=== PATIENT | male | born 1980 | race Caucasian/White ===

== ENCOUNTER 2018-07-02 09:17 | Emergency (ER) | payer SELFPAY ==
[2018-07-02] MEDS ORDERED: ONDANSETRON 4 MG/2 ML VIAL ONE (09:30)
[2018-07-02] MEDS ORDERED: FENTANYL CITR 100 MCG/2 ML ONE ×2 (09:30→10:25)
[2018-07-02 09:42] LABS: Absolute Lymphocytes (CBC) 1.2 K/uL (0.7-4.9); Absolute Monocytes 0.5 K/uL (0.1-1.3); Absolute Neutrophil 3.9 K/uL (1.8-8.0); Eosinophils % 1.1 % (0-4.4); Hematocrit 46.6 % (39.6-49.0); Lymphocytes % 21.2 % (15.3-44.8); MPV 9.8 fL (7.6-11.3)
--- NOTE | 2018-07-02 09:53 | RAD REPORT ---
EXAM DESCRIPTION: CT - Head C Spine Cap Kendy Holloway - 07/02/2018 9:33 am CLINICAL HISTORY: Fall from roof, head, neck, chest and abdomen pain COMPARISON: None. TECHNIQUE: Axial [address] head images were obtained. Axial [address] cervical spine images were obtaine d with sagittal and coronal reconstruction images reviewed. During dynamic enhancement of 100mL non-i onic contrast, axial 5 mm images of the chest, abdomen and pelvis were obtained. All CT scans are performed using dose optimization technique as appropriate and may include automated exposure control or mA/KV adjustment according to patient size. FINDINGS: No intracranial hemorrhage, mass or edema. No midline shift or abnormal fluid collection. Mastoid air cells and paranasal sinuses are clear. No skull fracture. CT cervical spine imaging shows normal height. Normal alignment of the vertebrae. No disc space narro wing. No paraspinal mass or hematoma seen. Central canal detail is inherently limited. Concerns for t raumatic disc herniation or traumatic cord injury can be further addressed with MR imaging. CT chest shows no pneumothorax, pulmonary contusion or pleural fluid collection. Minimal dependent at electasis in each posterior lung field. No mediastinal hematoma and the aorta and pulmonary arteries are unremarkable. No chest will mass or abnormal axillary finding. No displaced rib fracture or other significant bony finding. CT abdomen and pelvis show no injury to solid abdominal viscera. Gallbladder and biliary tree are unr emarkable. No bowel injury or significant finding. No free air, free fluid or abnormal stranding. No urinary bladder abnormality. There is a trace amount of contusion in the left flank subcutaneous fatt y tissues. No hematoma. No significant bony finding. No hip fracture or acute pelvic finding. IMPRESSION: No significant CT Head finding. No significant CT Cervical Spine finding. No significant CT Chest finding. No significant CT Abdomen and Pelvis finding. Minimal contusion in the left flank subcutaneous fat.
[2018-07-02 09:59] LABS: Potassium 4.1 mmol/L (3.5-5.1)
--- NOTE | 2018-07-02 10:53 | RAD REPORT ---
EXAM DESCRIPTION: RAD - Elbow Left 3 View - 07/02/2018 10:44 am CLINICAL HISTORY: PAIN Trauma, fall COMPARISON: No comparisons FINDINGS: No acute fracture or dislocation of the left elbow seen.
--- NOTE | 2018-07-02 10:55 | RAD REPORT ---
EXAM DESCRIPTION: RAD - Ankle Left 3 View - 07/02/2018 10:44 am CLINICAL HISTORY: PAIN COMPARISON: No comparisons FINDINGS: No acute fracture or dislocation of the left ankle is seen.
--- NOTE | 2018-07-02 10:56 | RAD REPORT ---
EXAM DESCRIPTION: RAD - Knee Right 3 View - 07/02/2018 10:49 am CLINICAL HISTORY: PAIN Trauma, fall, pain COMPARISON: No comparisons FINDINGS: No fracture or dislocation of the right knee is observed.
--- NOTE | 2018-07-02 10:58 | RAD REPORT ---
EXAM DESCRIPTION: RAD - Hip Right 2 View - 07/02/2018 10:49 am CLINICAL HISTORY: RT HIP PAIN Trauma, fall, pain COMPARISON: Head C Spine Cap W Con dated 07/02/2018 FINDINGS: Mild osteoarthritic changes affect the right hip. No acute fracture or dislocation is seen . A subtle sclerotic line is seen near the junction of the femoral head and neck, probably normal nikolas iant. However, the patient's pain persists or progresses, MR imaging would be advised to further asse ss this region.
[2018-07-02] MEDS ORDERED: HYDROMORPHONE HCL 0.5 MG/0.5 ML INJ ONE ×2 (11:43→13:03)
[2018-07-02] MEDS ORDERED: KETOROLAC 30 MG/ML INJ ONE (11:55)
[2018-07-02] MEDS ORDERED: DEXAMETHASONE 10 MG/ML VIAL ONE (11:55)
--- NOTE | 2018-07-02 13:25 | EKG ---
Test Date: 2018-07-02 Test Time: 09:54:50 Utility Tender Carding: JESSY MEASUREMENT RESULTS: Intervals: Rate: 58 MA: 140 QRSD: 84 QT: 390 QTc: 382 [place]: P: 52 MA: 140 QRS: 69 T: 56 INTERPRETIVE STATEMENTS: Sinus bradycardia Otherwise normal ECG No previous ECG available for comparison Electronically Signed On 07-02-18 13:24:28 SKIN SPECIALIST by Cheikh Fuchs
[2018-07-02] MEDS ORDERED: HYDROMORPHONE HCL 1 MG/ML INJ ONE (14:26)
[2018-07-02] MEDS ORDERED: NA CHLORIDE 0.9% 100 ML IV ONE (14:27)
--- NOTE | 2018-07-02 16:27 | RAD REPORT ---
EXAM DESCRIPTION: MRI - Hip Right Wo Cont - 07/02/2018 4:14 pm CLINICAL HISTORY: Right hip pain, abnormal right hip plain film COMPARISON: Right hip July 02 TECHNIQUE: Multiplanar imaging of the pelvis and hip joints performed using T1 weighted, T2 STIR, pr oton density and T2 fat saturation sequencing. FINDINGS: Proximal right femur signal characteristics are within normal range and symmetric with the asymptomatic left hip. The sclerotic focus seen on plain film is a summation artifact. There is no o ccult fracture or marrow edema in the proximal right femur. Small bilateral joint effusions are prese nt not outside of normal range. No AVN or focal femoral head abnormality. The lower half of the bony pelvis is imaged and shows no suspicious finding. Portions of each iliac crest are obscured from view on this hip protocol study. No sacral ala suspicious finding. No periarticular mass or hematoma seen. Skeletal musculature shows no suspicious finding. IMPRESSION: Negative MRI of the right hip for acute or significant finding. The sclerotic focus on p [place] film is a summation artifact.
--- NOTE | 2018-07-02 16:43 | EDPHYS ---
Physician Documentation [facility] Name: Rashaad Johnson Age: 38 yrs Sex: Male : 1980 Arrival Date: 07/02/2018 Time: 09:20 Bed 2 Private MD: ED Physician Sebastian Hill HPI: 07/02 09:42 This 38 yrs old Male presents to ER via Wheelchair with complaints of Fall from Roof. jr8 09:42 Trauma demographics: County: The injury occurred in [place] Location of Injury: The jr8 injury occurred outdoors, Date: July 02, 2018. Mechanism of injury: Fall: the patient fell from a roof approximately approximately 10 feet, and struck dirt. Associated injuries: The patient sustained injury to the low back, left arm, right leg and left leg. Onset: The symptoms/episode began/occurred acutely, today. The patient has not experienced similar symptoms in the past. The patient has not recently seen a physician. Slipped while on roof causing fall. Denies hitting head or neck. No LOC . Historical: - Allergies: 09:28 No Known Allergies; ph - Home Meds: : Diazepam Oral [Active]; ph - PMHx: 09:28 None; ph - Immunization history:: Adult Immunizations up to date, Last tetanus immunization: up to date. - Social history:: Smoking status: Patient uses tobacco products, smokes one pack cigarettes per day. - Ebola Screening: : No symptoms or risks identified at this time. ROS: 09:42 Eyes: Negative for injury, pain, redness, and discharge, ENT: Negative for injury, jr8 pain, and discharge, Neck: Negative for injury, pain, and swelling, Cardiovascular: Negative for chest pain, palpitations, and edema, Respiratory: Negative for shortness of breath, cough, wheezing, and pleuritic chest pain, Abdomen/GI: Negative for abdominal pain, nausea, vomiting, diarrhea, and constipation, Skin: Negative for injury, rash, and discoloration, Neuro: Negative for headache, weakness, numbness, tingling, and seizure. 09:42 Back: Positive for pain at rest, pain with movement, of the lumbar area and low back area. 09:42 MS/extremity: Positive for pain, tenderness, of the right knee, left ankle, left elbow, right hip. Exam: 09:42 Eyes: Pupils equal round and reactive to light, extra-ocular motions intact. Lids and jr8 lashes normal. Conjunctiva and sclera are non-icteric and not injected. Cornea within normal limits. Periorbital areas with no swelling, redness, or edema. ENT: Nares patent. No nasal discharge, no septal abnormalities noted. Tympanic membranes are normal and external auditory canals are clear. Oropharynx with no redness, swelling, or masses, exudates, or evidence of obstruction, uvula midline. Mucous membranes moist. Neck: Trachea midline, no thyromegaly or masses palpated, and no cervical lymphadenopathy. Supple, full range of motion without nuchal rigidity, or vertebral point tenderness. No Meningismus. Chest/axilla: Normal chest wall appearance and motion. Nontender with no deformity. No lesions are appreciated. Cardiovascular: Regular rate and rhythm with a normal S1 and S2. No gallops, murmurs, or rubs. Normal PMI, no JVD. No pulse deficits. Respiratory: Lungs have equal breath sounds bilaterally, clear to auscultation and percussion. No rales, rhonchi or wheezes noted. No increased work of breathing, no retractions or nasal flaring. Abdomen/GI: Soft, non-tender, with normal bowel sounds. No distension or tympany. No guarding or rebound. No evidence of tenderness throughout. Skin: Warm, dry with normal turgor. Normal color with no rashes, no lesions, and no evidence of cellulitis. Neuro: Awake and alert, GCS 15, oriented to person, place, time, and situation. Cranial nerves II-XII grossly intact. Motor strength 5/5 in all extremities. Sensory grossly intact. Cerebellar exam normal. Normal gait. 09:42 Back: pain, that is moderate, of the lumbar area and low back area, ROM is painful, normal spinal alignment noted, CVA tenderness, is absent, muscle spasm, is not present. 09:42 Musculoskeletal/extremity: Extremities: Patient has pain with decreased ROM to right knee. Patient has pain with decreased ROM to left ankle. Pain to left elbow with full ROM. Pain and tenderness to right hip. No obvious deformity, bruising, abrasions, lacerations to any of the extremities. Pulses 2+ radial, femoral, PT, and DP . Normal sensation present . Vital Signs: 09:30 BP 133 / 82; Pulse 78; Resp 24; Temp 98.1; Pulse Ox 100% on R/A; Weight 90.72 kg; ph Height 6 ft. 1 in. (185.42 cm); Pain 10/10; 10:28 BP 116 / 72; Pulse 54; Resp 14; Temp 98.5; Pulse Ox 99% on R/A; Pain 3/10; ch 11:30 BP 129 / 79; Pulse 57; Resp 16; Pulse Ox 97% on R/A; ph 12:22 BP 117 / 74; Pulse 45; Resp 16; Pulse Ox 98% on R/A; ph 12:59 BP 120 / 64; Pulse 61; Resp 19; Pulse Ox 99% on R/A; Pain 9/10; ch 13:39 BP 109 / 78; Pulse 47; Resp 16; Pulse Ox 97% on R/A; ph 16:40 BP 110 / 62; Pulse 65; Resp 14; Temp 98.2; Pulse Ox 99% on R/A; Pain 9/10; ch 09:30 Body Mass Index 26.39 (90.72 kg, 185.42 cm) ph Spencer Coma Score: 09:30 Eye Response: spontaneous(4). Verbal Response: oriented(5). Motor Response: obeys ph commands(6). Total: 15. 10:28 Eye Response: spontaneous(4). Verbal Response: oriented(5). Motor Response: obeys ch commands(6). Total: 15. 11:30 Eye Response: spontaneous(4). Verbal Response: oriented(5). Motor Response: obeys ph commands(6). Total: 15. 12:22 Eye Response: spontaneous(4). Verbal Response: oriented(5). Motor Response: obeys ph commands(6). Total: 15. 13:39 Eye Response: spontaneous(4). Verbal Response: oriented(5). Motor Response: obeys ph commands(6). Total: 15. 16:40 Eye Response: spontaneous(4). Verbal Response: oriented(5). Motor Response: obeys ch commands(6). Total: 15. Trauma Score (Adult): 09:30 Eye Response: spontaneous(1); Verbal Response: oriented(1); Motor Response: obeys ph commands(2); Systolic BP: > 89 mm Hg(4); Respiratory Rate: 10 to 29 per min(4); Ben Score: 15; Trauma Score: 12 11:30 Eye Response: spontaneous(1); Verbal Response: oriented(1); Motor Response: obeys ph commands(2); Systolic BP: > 89 mm Hg(4); Respiratory Rate: 10 to 29 per min(4); Spencer Score: 15; Trauma Score: 12 12:22 Eye Response: spontaneous(1); Verbal Response: oriented(1); Motor Response: obeys ph commands(2); Systolic BP: > 89 mm Hg(4); Respiratory Rate: 10 to 29 per min(4); Ben Score: 15; Trauma Score: 12 13:39 Eye Response: spontaneous(1); Verbal Response: oriented(1); Motor Response: obeys ph commands(2); Systolic BP: > 89 mm Hg(4); Respiratory Rate: 10 to 29 per min(4); Spencer Score: 15; Trauma Score: 12 16:40 Eye Response: spontaneous(1); Verbal Response: oriented(1); Motor Response: obeys ch commands(2); Systolic BP: > 89 mm Hg(4); Respiratory Rate: 10 to 29 per min(4); Ben Score: 15; Trauma Score: 12 MDM: 09:21 Patient medically screened. [facility] 16:38 Differential diagnosis: intra-abdominal injury, closed head injury, cardiac contusion, jr8 extremity fracture, C spine fracture, T spine fracture, L spine fracture. Data reviewed: vital signs, nurses notes, lab test result(s), radiologic studies, CT scan, MRI, plain films. Data interpreted: Pulse oximetry: on room air is 97 %. Interpretation: normal. Counseling: I had a detailed discussion with the patient and/or guardian regarding: the historical points, exam findings, and any diagnostic results supporting the discharge/admit diagnosis, lab results, radiology results, the need for outpatient follow up, a family practitioner, a orthopedic surgeon, to return to the emergency department if symptoms worsen or persist or if there are any questions or concerns that arise at home. 07/02 09:22 Order name: Basic Metabolic Panel; Complete Time: 10:38 07/02 09:22 Order name: CBC with Diff; Complete Time: 09:58 07/02 09:22 Order name: CT Traumagram (Head C Spine CAP W Con); Complete Time: 09:58 07/02 09:22 Order name: Creatinine for Radiology; Complete Time: 09:58 07/02 09:22 Order name: Type And Screen; Complete Time: 10:38 8 07/02 09:53 Order name: ABO/RH no charge; Complete Time: 09:58 EDMS 07/02 09:22 Order name: XRAY Ankle LEFT 3 view; Complete Time: 11:18 07/02 09:22 Order name: XRAY Elbow LEFT 3 view; Complete Time: 10:57 07/02 09:22 Order name: XRAY Knee RIGHT 3 view; Complete Time: 11:18 07/02 10:14 Order name: Hip Right 2 View; Complete Time: 11:18 EDMS 07/02 11:42 Order name: MRI Lumbar Spine wo Con; Complete Time: 16:54 07/02 11:52 Order name: Hip Right Wo Cont; Complete Time: 16:35 EDMS 07/02 09:22 Order name: Labs collected and sent; Complete Time: 09:34 07/02 09:22 Order name: EKG; Complete Time: 09:23 Administered Medications: 09:30 Drug: fentaNYL (PF) 75 mcg Route: IVP; Site: right antecubital; ph 10:26 Follow up: Response: No adverse reaction; Pain is decreased ch 09:30 Drug: Zofran 4 mg Route: IVP; Site: right antecubital; ph 10:26 Follow up: Response: No adverse reaction; Marked relief of symptoms ch 10:20 Drug: fentaNYL (PF) 75 mcg Route: IVP; Site: right antecubital; ch 10:26 Follow up: Response: No adverse reaction; Pain is decreased ch 11:43 Drug: Dilaudid 0.5 mg Route: IVP; Site: right antecubital; ph 12:22 Follow up: Response: No adverse reaction; Pain is decreased ph 12:18 Drug: TORadol 30 mg Route: IVP; Site: right antecubital; ph 13:02 Follow up: Response: No adverse reaction; No change in condition ch 12:20 Drug: Decadron - Dexamethasone 10 mg Route: IVP; Site: right antecubital; ph 13:01 Follow up: Response: No adverse reaction; No change in condition ch 13:01 Drug: Dilaudid 0.5 mg Route: IVP; Site: right antecubital; ch 13:30 Follow up: Response: No adverse reaction; Pain is decreased ph 14:27 Drug: Dilaudid 1 mg Route: IVP; Site: right antecubital; ph 15:30 Follow up: Response: No adverse reaction; Pain is decreased ph Disposition: 18:15 Co-signature as Attending Physician, Sebastian Hill MD. rn Disposition: 07/02/18 16:42 Discharged to Home. Impression: Acute pain due to trauma, Contusion of right hip, Low back pain, Radiculopathy, lumbar region. - Condition is Stable. - Discharge Instructions: Back Pain, Adult, Musculoskeletal Pain, Hip Pain, Back Exercises, [id number], Heat Therapy. - Prescriptions for Ibuprofen 800 mg Oral Tablet - take 1 tablet by ORAL route every 12 hours As needed take with food; 20 tablet. Tylenol- Codeine #3 300-30 mg Oral Tablet - take 2 tablets by ORAL route every 6 hours As needed; 20 tablet. Zanaflex 4 mg Oral Tablet - take 1 tablet by ORAL route every 8 hours As needed; 20 tablet. Medrol ([place]) 4 mg Oral Tablets, Dose Pack - take 1 tablet by ORAL route as directed - follow package instructions; 1 packet. - Medication Reconciliation Form, Thank You Letter, Antibiotic Education, Prescription Opioid Use form. - Follow up: Private Physician; When: 5 - 6 days; Reason: Recheck today's complaints, Continuance of care, Re-evaluation by your physician. - Problem is new. - Symptoms have improved. Signatures: Dispatcher [employer] [facility] Rohini Perez, RN RN Sebastian Deshpande MD MD rn Roszak, Josh, PA PA jr8 Domitila Richardson RN RN ph Corrections: (The following items were deleted from the chart) 10:14 10:14 Hand Right 2 View ordered. [facility] 17:08 16:42 07/02/2018 16:42 Discharged to Home. Impression: Acute pain due to trauma; ph Contusion of right hip; Low back pain; Radiculopathy, lumbar region. Condition is Stable. Forms are Medication Reconciliation Form, Thank You Letter, Antibiotic Education, Prescription Opioid Use. Follow up: Private Physician; When: 5 - 6 days; Reason: Recheck today's complaints, Continuance of care, Re-evaluation by your physician. Problem is new. Symptoms have improved. jr8
--- NOTE | 2018-07-02 16:43 | ER ---
Nurse's Notes [facility] Name: Rashaad Johnson Age: 38 yrs Sex: Male : 1980 Arrival Date: 07/02/2018 Time: 09:20 Bed 2 Private MD: Diagnosis: Acute pain due to trauma;Contusion of right hip;Low back pain;Radiculopathy, lumbar region Presentation: 07/02 09:24 Presenting complaint: Patient states: " I was working up on the roof and slipped and ph fell off." Pt reports falling approx 10 ft, denies head injury or LOC, c/o pain in L ankle, L elbow, R hip, R knee and low back area, c-collar placed after arrival to ED. Transition of care: patient was not received from another setting of care. Onset of symptoms was July 02, 2018. Risk Assessment: Do you want to hurt yourself or someone else? Patient reports no desire to harm self or others. Initial Sepsis Screen: Does the patient meet any 2 criteria? No. Patient's initial sepsis screen is negative. Does the patient have a suspected source of infection? No. Patient's initial sepsis screen is negative. Care prior to arrival: None. 09:24 Method Of Arrival: Wheelchair ph 09:24 Acuity: EUGENE 2 ph 09:24 Mechanism of Injury: Fall from roof approximately 10 feet. Trauma event details: Injury ph occurred in the [facility], Injury occurred: at home. Injury occurred: July 02, 2018. Historical: - Allergies: 09:28 No Known Allergies; ph - Home Meds: 09:28 Diazepam Oral [Active]; ph - PMHx: 09:28 None; ph - Immunization history:: Adult Immunizations up to date, Last tetanus immunization: up to date. - Social history:: Smoking status: Patient uses tobacco products, smokes one pack cigarettes per day. - Ebola Screening: : No symptoms or risks identified at this time. Screenin:30 Abuse screen: Denies threats or abuse. Denies injuries from another. Nutritional ph screening: No deficits noted. Tuberculosis screening: No symptoms or risk factors identified. Fall Risk None identified. Primary Survey: 09:29 NO uncontrolled hemorrhage observed. A: The patient is alert. Airway: patent, No ph supplemental oxygen in use on arrival. Oral cavity: clear, Trachea midline. Breathing/Chest: Respiratory pattern: regular, Respiratory effort: spontaneous, unlabored, Breath sounds: clear, bilaterally. Chest inspection: symmetrical rise and fall of the chest. Circulation: Cardiac rhythm: sinus rhythm Skin color: pink, Skin temperature: warm, dry. Disability Alert. Exposure/Environment: All clothing and personal items were removed. Forensic evidence collection is not deemed to be indicated at this time. Items placed in patient belonging bag. There is no evidence of uncontrolled external bleeding. A warming method has been applied: A warm blanket has been provided to the patient. 10:29 Reassessment Airway Airway Patent Breathing/Chest Respiratory pattern Regular ch Respiratory effort Spontaneous Unlabored Breath sounds Clear Circulation Heart rhythm Sinus christopher Color [place] Temperature Warm Dry Disability Alert. Secondary Survey: 09:30 HEENT: No deficits noted. Gastrointestinal: No deficits noted. Musculoskeletal: ph Circulation, motion, and sensation intact. Reports pain in left elbow, left ankle, right hip, right knee, and low back area. 10:29 : No signs and/or symptoms were reported regarding the genitourinary system. Urine is ch clear, Genitalia appear normal. Assessment: 09:30 General: Appears in no apparent distress. uncomfortable, slender, Behavior is calm, ph cooperative, appropriate for age. Pain: Complains of pain in left elbow, left ankle, right hip, right knee, and low back area. Neuro: Level of Consciousness is awake, alert, obeys commands, Oriented to person, place, time, situation, Denies weakness blurred vision dizziness. Cardiovascular: Capillary refill < 3 seconds in bilateral fingers Patient's skin is warm and dry. Respiratory: Airway is patent Respiratory effort is even, unlabored, Respiratory pattern is regular, symmetrical, Breath sounds are clear bilaterally. GI: Patient currently denies abdominal pain, nausea, vomiting. Derm: Skin is intact, is healthy with good turgor, Skin is pink, warm \\T\\ dry. Musculoskeletal: Circulation, motion, and sensation intact. 10:28 Reassessment: Patient appears in no apparent distress at this time. Patient and/or ch family updated on plan of care and expected duration. Pain level reassessed. Patient is alert, oriented x 3, equal unlabored respirations, skin warm/dry/pink. Patient states feeling better. Patient states symptoms have improved. 11:30 Reassessment: Patient appears in no apparent distress at this time. Patient and/or ph family updated on plan of care and expected duration. Pain level reassessed. Patient is alert, oriented x 3, equal unlabored respirations, skin warm/dry/pink. 12:25 Reassessment: Patient appears in no apparent distress at this time. Patient and/or ph family updated on plan of care and expected duration. Pain level reassessed. Patient is alert, oriented x 3, equal unlabored respirations, skin warm/dry/pink. Pt resting quietly, awaiting MRI, VSS, SO at bedside\\E\\. 12:59 Reassessment: Patient appears in no apparent distress at this time. Patient and/or ch family updated on plan of care and expected duration. Pain level reassessed. Patient is alert, oriented x 3, equal unlabored respirations, skin warm/dry/pink. pt c/o increase in pain, medicated per orders. pt states he is having tingling to R foot. 13:38 Reassessment: Patient appears in no apparent distress at this time. Patient and/or ph family updated on plan of care and expected duration. Pain level reassessed. Patient is alert, oriented x 3, equal unlabored respirations, skin warm/dry/pink. Pt reports that pain has improved after IV medication, awaiting MRI, SO at bedside, VSS, will continue to monitor. 15:41 Reassessment: Patient appears in no apparent distress at this time. Patient and/or ph family updated on plan of care and expected duration. Pain level reassessed. Patient is alert, oriented x 3, equal unlabored respirations, skin warm/dry/pink. Pt taken for MRI. 16:40 Reassessment: Patient appears in no apparent distress at this time. Patient and/or ch family updated on plan of care and expected duration. Pain level reassessed. pt returned from MRI, states his pain is back and worse than ever. Ayan notified. Vital Signs: 09:30 BP 133 / 82; Pulse 78; Resp 24; Temp 98.1; Pulse Ox 100% on R/A; Weight 90.72 kg; ph Height 6 ft. 1 in. (185.42 cm); Pain 10/10; 10:28 BP 116 / 72; Pulse 54; Resp 14; Temp 98.5; Pulse Ox 99% on R/A; Pain 3/10; ch 11:30 BP 129 / 79; Pulse 57; Resp 16; Pulse Ox 97% on R/A; ph 12:22 BP 117 / 74; Pulse 45; Resp 16; Pulse Ox 98% on R/A; ph 12:59 BP 120 / 64; Pulse 61; Resp 19; Pulse Ox 99% on R/A; Pain 9/10; ch 13:39 BP 109 / 78; Pulse 47; Resp 16; Pulse Ox 97% on R/A; ph 16:40 BP 110 / 62; Pulse 65; Resp 14; Temp 98.2; Pulse Ox 99% on R/A; Pain 9/10; ch 09:30 Body Mass Index 26.39 (90.72 kg, 185.42 cm) ph Ben Coma Score: 09:30 Eye Response: spontaneous(4). Verbal Response: oriented(5). Motor Response: obeys ph commands(6). Total: 15. 10:28 Eye Response: spontaneous(4). Verbal Response: oriented(5). Motor Response: obeys ch commands(6). Total: 15. 11:30 Eye Response: spontaneous(4). Verbal Response: oriented(5). Motor Response: obeys ph commands(6). Total: 15. 12:22 Eye Response: spontaneous(4). Verbal Response: oriented(5). Motor Response: obeys ph commands(6). Total: 15. 13:39 Eye Response: spontaneous(4). Verbal Response: oriented(5). Motor Response: obeys ph commands(6). Total: 15. 16:40 Eye Response: spontaneous(4). Verbal Response: oriented(5). Motor Response: obeys ch commands(6). Total: 15. Trauma Score (Adult): 09:30 Eye Response: spontaneous(1); Verbal Response: oriented(1); Motor Response: obeys ph commands(2); Systolic BP: > 89 mm Hg(4); Respiratory Rate: 10 to 29 per min(4); Ben Score: 15; Trauma Score: 12 11:30 Eye Response: spontaneous(1); Verbal Response: oriented(1); Motor Response: obeys ph commands(2); Systolic BP: > 89 mm Hg(4); Respiratory Rate: 10 to 29 per min(4); Ben Score: 15; Trauma Score: 12 12:22 Eye Response: spontaneous(1); Verbal Response: oriented(1); Motor Response: obeys ph commands(2); Systolic BP: > 89 mm Hg(4); Respiratory Rate: 10 to 29 per min(4); Ben Score: 15; Trauma Score: 12 13:39 Eye Response: spontaneous(1); Verbal Response: oriented(1); Motor Response: obeys ph commands(2); Systolic BP: > 89 mm Hg(4); Respiratory Rate: 10 to 29 per min(4); Ben Score: 15; Trauma Score: 12 16:40 Eye Response: spontaneous(1); Verbal Response: oriented(1); Motor Response: obeys ch commands(2); Systolic BP: > 89 mm Hg(4); Respiratory Rate: 10 to 29 per min(4); Ben Score: 15; Trauma Score: 12 ED Course: 09:20 Patient arrived in ED. bd 09:21 Ayan Mcneill PA is PHCP. jr8 09:21 Sebastian Hill MD is Attending Physician. jr8 09:24 Domitila Richardson, SACHI is Primary Nurse. ph 09:24 Patient has correct armband on for positive identification. Placed in gown. Bed in low mh5 position. Call light in reach. Side rails up X2. Warm blanket given. pvc monitor on. Pulse ox on. NIBP on. 09:25 Inserted saline lock: 14 gauge in right antecubital area, using aseptic technique. ph Blood collected. Patient maintains SpO2 saturation greater than 95% on room air. 09:27 Triage completed. ph 09:28 CT completed. Patient tolerated procedure well. Patient moved to CT via stretcher. Patient moved back from CT. 09:33 CT Traumagram (Head C Spine CAP W Con) In Process Unspecified. EDMS 09:35 Arm band placed on. ph 09:36 Thermoregulation: warm blanket given to patient. ph 10:02 EKG done, by [employer] set up technician. reviewed by Ayan KYE. at1 10:29 Patient maintains SpO2 saturation greater than 95% on room air. ch 10:43 X-ray completed. Patient tolerated procedure well. Patient moved to radiology via jb2 stretcher. Patient moved back from radiology. 10:45 XRAY Ankle LEFT 3 view In Process Unspecified. EDMS 10:45 XRAY Elbow LEFT 3 view In Process Unspecified. EDMS 10:45 XRAY Knee RIGHT 3 view In Process Unspecified. EDMS 10:45 Hip Right 2 View In Process Unspecified. EDMS 16:14 MRI Lumbar Spine wo Con In Process Unspecified. EDMS 16:14 Hip Right Wo Cont In Process Unspecified. EDMS 17:05 No provider procedures requiring assistance completed. IV discontinued, intact, ph bleeding controlled, No redness/swelling at site. Pressure dressing applied. Administered Medications: 09:30 Drug: fentaNYL (PF) 75 mcg Route: IVP; Site: right antecubital; ph 10:26 Follow up: Response: No adverse reaction; Pain is decreased ch 09:30 Drug: Zofran 4 mg Route: IVP; Site: right antecubital; ph 10:26 Follow up: Response: No adverse reaction; Marked relief of symptoms ch 10:20 Drug: fentaNYL (PF) 75 mcg Route: IVP; Site: right antecubital; ch 10:26 Follow up: Response: No adverse reaction; Pain is decreased ch 11:43 Drug: Dilaudid 0.5 mg Route: IVP; Site: right antecubital; ph 12:22 Follow up: Response: No adverse reaction; Pain is decreased ph 12:18 Drug: TORadol 30 mg Route: IVP; Site: right antecubital; ph 13:02 Follow up: Response: No adverse reaction; No change in condition ch 12:20 Drug: Decadron - Dexamethasone 10 mg Route: IVP; Site: right antecubital; ph 13:01 Follow up: Response: No adverse reaction; No change in condition ch 13:01 Drug: Dilaudid 0.5 mg Route: IVP; Site: right antecubital; ch 13:30 Follow up: Response: No adverse reaction; Pain is decreased ph 14:27 Drug: Dilaudid 1 mg Route: IVP; Site: right antecubital; ph 15:30 Follow up: Response: No adverse reaction; Pain is decreased ph Intake: 09:30 PO: 0ml; Total: 0ml. ph 12:22 PO: 0ml; Total: 0ml. ph Output: 09:30 Urine: 0ml; Total: 0ml. ph 10:29 Urine: 550ml (Voided); Total: 550ml. ch 12:22 Urine: 450ml (Voided); Total: 1000ml. ph Outcome: 16:42 Discharge ordered by MD. lane 17:06 Discharged to home ambulatory, with significant other. ph 17:06 Condition: good 17:06 Discharge instructions given to patient, significant other, Instructed on discharge instructions, follow up and referral plans. medication usage, Demonstrated understanding of instructions, follow-up care, medications, Prescriptions given X 4. 17:07 Patient's length of stay in the Emergency Department was greater than 2 hours. awaiting ph MRIPatient's length of stay extended due to 17:08 Patient left the ED. ph Signatures: Dispatcher [employer] EDMS Rufina Flowers Christina, SACHI RN Asher Glasgow Susan sj Roszak, Josh, PA PA jr8 Gonzales, Amanda, audit tech EKG Tat1 Domitila Richardson RN RN Bailee Vidal [facility]
--- NOTE | 2018-07-02 16:53 | RAD REPORT ---
EXAM DESCRIPTION: MRI - Lumbar Spine Wo Con - 07/02/2018 4:33 pm CLINICAL HISTORY: Fall from roof, back and hip pain, numbness and tingling in the right lower extrem ity COMPARISON: None. TECHNIQUE: Sagittal T1-weighted, T2-weighted and T2-STIR weighted sequences were obtained. Axial T1 -weighted and heavily T2-weighted sequenceswere obtained through the lumbar disc levels. FINDINGS: Lumbar bodies are normal in height and alignment. No suspicious marrow signal. No paraspi nal masses. Combined imaging between the lumbar spine and the hip/pelvis MRI effectively rule out a s acral ala injury. Conus is normal with no clumping or thickening of the cauda equina. T12-L1 level: No significant findings. L1-2 level: No significant findings. L2-3 level: No significant findings. L3-4 level: No significant findings. L4-5 level: Very minimal midline disc bulge present. Thecal sac is 13 mm in the midline. No foraminal encroachment. L5-S1 level: Early desiccation changes are present. There is a midline disc bulge. No central spinal stenosis at this level. No mass effect on the thecal sac or right S1 nerve root. Disc bulge contacts the left S1 nerve root at the origin but there is no indication of left lower extremity symptoms. The bulging disc does not displace the S1 nerve root on the left. No foraminal encroachment at this leve l. No pars defects are present. IMPRESSION: L5-S1 midline disc bulge causing no central spinal stenosis or significant mass effect. There is early desiccation of this disc. Minimal midline disc bulge L4-5 without desiccation. No canal or foramen stenosis. No compression fracture or marrow signal abnormality from T12- mid S3.
== END 2018-07-02 17:08 | disposition home or self-care (01) ==
LOC: ER 09:17
DX: M54.16 Radiculopathy, lumbar region (principal); S70.01XA Contusion of right hip, initial encounter; G89.11 Acute pain due to trauma; W17.89XA Other fall from one level to another, initial encounter; Y93.89 Activity, other specified; Y92.89 Other specified places as the place of occurrence of the external cause; F17.210 Nicotine dependence, cigarettes, uncomplicated
CPT/HCPCS: 36415; 70450; 71260; 72125; 72148; 74177; 80048; 85025; 86850; 86900; 86901; 93005; 96374; 96375; 99285; J1100; J1170; J2405; J3010; Q9967

== ENCOUNTER 2018-11-28 11:22 | Emergency (ER) | payer SELFPAY ==
[2018-11-28] MEDS ORDERED: IBUPROFEN 400 MG TAB ONE (12:12)
--- NOTE | 2018-11-28 12:30 | RAD REPORT ---
EXAM DESCRIPTION: RAD - Hand Right 3 View - 11/28/2018 12:14 pm CLINICAL HISTORY: Right hand pain status post injury FINDINGS: No acute fracture or dislocation is seen. Mild deformity of the fifth metacarpal may be secondary to an old fracture
--- NOTE | 2018-11-28 12:44 | ER ---
Nurse's Notes [facility] Name: Rashaad Johnson Age: 38 yrs Sex: Male : 1980 Arrival Date: 11/28/2018 Time: 11:25 Bed 20 Private MD: Ronald Lilly T Diagnosis: Pain in right hand Presentation: 11/28 11:34 Presenting complaint: Patient states: R hand pain and swelling after punching a solid ss wood wall yesterday evening. Transition of care: patient was not received from another setting of care. Onset of symptoms was November 27, 2018. Risk Assessment: Do you want to hurt yourself or someone else? Patient reports no desire to harm self or others. Initial Sepsis Screen: Does the patient meet any 2 criteria? No. Patient's initial sepsis screen is negative. Does the patient have a suspected source of infection? No. Patient's initial sepsis screen is negative. Care prior to arrival: None. 11:34 Method Of Arrival: Ambulatory ss 11:34 Acuity: EUGENE 4 ss Historical: - Allergies: 11:36 No Known Allergies; ss - PMHx: 11:36 Anxiety; ss - PSHx: 11:36 None; ss - Immunization history:: Adult Immunizations up to date. - Social history:: Smoking status: Patient uses tobacco products, smokes one pack cigarettes per day. - Ebola Screening: : Patient denies exposure to infectious person Patient denies travel to an Ebola-affected area in the 21 days before illness onset. Screenin:40 Abuse screen: Denies threats or abuse. Nutritional screening: No deficits noted. em Tuberculosis screening: No symptoms or risk factors identified. 11:40 Fall Risk None identified. em Assessment: 12:10 Reassessment: reports taking 6 ibuprofen this morning for pain, request a tylenol 3, em reports he can get a ride, provider notified. 12:10 General: Appears in no apparent distress. comfortable, Behavior is calm, cooperative. em Pain: Complains of pain in right hand Pain currently is 9 out of 10 on a pain scale. Neuro: Level of Consciousness is awake, alert, obeys commands, Oriented to person, place, time, situation. Respiratory: Airway is patent Respiratory effort is even, unlabored, Respiratory pattern is regular, symmetrical. Derm: Skin is intact, is healthy with good turgor, Skin is pink, warm \T\ dry. Musculoskeletal: Capillary refill < 3 seconds, Swelling present in right hand. Vital Signs: 11:36 BP 115 / 68; Pulse 73; Resp 16; Temp 98.2(TE); Pulse Ox 97% on R/A; Weight 86.18 kg; ss Height 6 ft. 1 in. (185.42 cm); Pain 9/10; 11:36 Body Mass Index 25.07 (86.18 kg, 185.42 cm) ED Course: 11:25 Patient arrived in ED. mr 11:26 Ronald Lilly MD is Private Physician. mr 11:36 Triage completed. ss 11:36 Arm band placed on left wrist. ss 11:40 Patient has correct armband on for positive identification. Bed in low position. Call em light in reach. 11:44 Kenneth Ramos LVN is Primary Nurse. em 11:44 Pratik Wong PA is PHCP. cp 11:44 Sebastian Hill MD is Attending Physician. cp 12:12 X-ray completed. Portable x-ray completed in exam room. Patient tolerated procedure ml well. 12:15 XRAY Hand RIGHT 3 View In Process Unspecified. EDMS 13:08 Orthoglass splint: Ulnar gutter/Boxer splint applied on right forearm. capillary refill dh3 less than 3 seconds. Pratik Wong, P.A. checked off splint. 13:15 No provider procedures requiring assistance completed. Patient did not have IV access em during this emergency room visit. Administered Medications: 12:39 Not Given (Other Intervention Used): Ibuprofen 800 mg PO once em Outcome: 12:43 Discharge ordered by . cp 13:15 Discharged to home ambulatory. em 13:15 Condition: good 13:15 Discharge instructions given to patient, Instructed on discharge instructions, follow up and referral plans. medication usage, Demonstrated understanding of instructions, follow-up care, medications, Prescriptions given X 1. 13:15 Patient left the ED. em Signatures: Dispatcher [employer] KELSEYNM GonzalezJessy RamosKenneth, RIKKI BRANDT em Charito Jones Shelby, RN RN Pratik Wong PA PA cp Herrera, Deanna dh3
--- NOTE | 2018-11-28 12:44 | EDPHYS ---
Physician Documentation [facility] Name: Rashaad Johnson Age: 38 yrs Sex: Male : 1980 Arrival Date: 11/28/2018 Time: 11:25 Bed 20 Private MD: Ronald Lilly T ED Physician Sebastian Hill HPI: 11/28 11:55 This 38 yrs old Male presents to ER via Ambulatory with complaints of Hand cp Injury. 11:55 The patient or guardian reports injury, pain. cp 11:55 The complaints affect the proximal third and fourth and fifth metacarpals of right cp hand. Context: resulted from using own fist to strike, a wall. Onset: The symptoms/episode began/occurred yesterday. Associated signs and symptoms: Pertinent negatives: cyanosis distally, decreased sensation distally. Historical: - Allergies: 11:36 No Known Allergies; ss - PMHx: 11:36 Anxiety; ss - PSHx: 11:36 None; ss - Immunization history:: Adult Immunizations up to date. - Social history:: Smoking status: Patient uses tobacco products, smokes one pack cigarettes per day. - Ebola Screening: : Patient denies exposure to infectious person Patient denies travel to an Ebola-affected area in the 21 days before illness onset. ROS: 11:57 MS/extremity: Positive for pain, swelling, tenderness, of the right hand, Negative for cp decreased range of motion, deformity. 11:57 Constitutional: Negative for chills, poor PO intake. cp 11:57 Cardiovascular: Negative for chest pain. 11:57 Respiratory: Negative for cough, shortness of breath, wheezing. 11:57 Abdomen/GI: Negative for abdominal pain, nausea, vomiting, and diarrhea. 11:57 Skin: Negative for laceration(s), rash. 11:57 Neuro: Negative for numbness, tingling, weakness. 11:57 All other systems are negative. Exam: 12:05 Constitutional: The patient appears in no acute distress, alert, awake, well developed, cp well nourished. 12:05 Head/Face: Normocephalic, atraumatic. cp 12:05 Eyes: Periorbital structures: Conjunctiva: normal, no exudate, no injection, Lids and lashes: appear normal, bilaterally. 12:05 ENT: External ear(s): are unremarkable, Nose: is normal, Mouth: Lips: moist, Oral mucosa: moist, Posterior pharynx: Airway: no evidence of obstruction, patent. 12:05 Chest/axilla: Inspection: normal. 12:05 Cardiovascular: Rate: normal. 12:05 Respiratory: the patient does not display signs of respiratory distress, Respirations: normal. 12:05 Musculoskeletal/extremity: Extremities: grossly normal except: noted in the proximal third and fourth and fifth metacarpals of right hand: pain, tenderness, very mild swelling, There is no evidence of decreased ROM, deformity, ROM: limited active range of motion due to pain, in the right hand, Perfusion: the extremity is normally perfused throughout, Sensation intact. 12:05 Skin: cellulitis, is not appreciated, no rash present. Vital Signs: 11:36 BP 115 / 68; Pulse 73; Resp 16; Temp 98.2(TE); Pulse Ox 97% on R/A; Weight 86.18 kg; ss Height 6 ft. 1 in. (185.42 cm); Pain 9/10; 11:36 Body Mass Index 25.07 (86.18 kg, 185.42 cm) Procedures: 13:10 Splinting: Splint applied to right hand using Orthoglass splint, ulna gutter type. cp applied by tech. Examined by me, post splint application: neurovascular intact, Patient tolerated well. MDM: 11:44 Patient medically screened. cp 12:42 Data reviewed: vital signs, nurses notes, radiologic studies, plain films. cp 12:42 Differential diagnosis: dislocation, open fracture, closed fracture, contusion. Test cp interpretation: by ED physician or midlevel provider: plain radiologic studies. Counseling: I had a detailed discussion with the patient and/or guardian regarding: the historical points, exam findings, and any diagnostic results supporting the discharge/admit diagnosis, radiology results, to return to the emergency department if symptoms worsen or persist or if there are any questions or concerns that arise at home. Response to treatment: the patient's symptoms have mildly improved after treatment, and as a result, I will discharge patient. 11/28 11:47 Order name: XRAY Hand RIGHT 3 View cp 11/28 12:41 Order name: Ulnar Gutter splint; Complete Time: 13:11 cp Administered Medications: 12:39 Not Given (Other Intervention Used): Ibuprofen 800 mg PO once em Disposition: 13:20 Chart complete. cp 11/29 07:25 Co-signature as Attending Physician, Sebastian Hill MD. rn Disposition: 11/28/18 12:43 Discharged to Home. Impression: Pain in right hand. - Condition is Stable. - Discharge Instructions: Hand Pain. - Prescriptions for Naprosyn 500 mg Oral Tablet - take 1 tablet by ORAL route 2 times per day take with food; 20 tablet. - Medication Reconciliation Form, Thank You Letter, Antibiotic Education, Prescription Opioid Use form. - Follow up: Private Physician; When: 5 - 6 days; Reason: pain continues. - Problem is new. - Symptoms have improved. Signatures: Dispatcher [employer] EDMI Kenneth Ramos, SERVICE CLERK SERVICE CLERK Sebastian Rangel MD MD rn Smirch, Shelby, RN RN ss Page, Corey, SHAHID KEY cp Corrections: (The following items were deleted from the chart) 11/28 13:15 12:43 11/28/2018 12:43 Discharged to Home. Impression: Pain in right hand. Condition is em Stable. Forms are Medication Reconciliation Form, Thank You Letter, Antibiotic Education, Prescription Opioid Use. Follow up: Private Physician; When: 5 - 6 days; Reason: pain continues. Problem is new. Symptoms have improved. cp
== END 2018-11-28 13:15 | disposition home or self-care (01) ==
LOC: ER 11:22
PROC: 2W3CX1Z Immobilization of Right Lower Arm using Splint (ICD-10-PCS; principal; 2018-11-28)
DX: M79.641 Pain in right hand (principal); F17.210 Nicotine dependence, cigarettes, uncomplicated
CPT/HCPCS: 99283

== ENCOUNTER 2019-08-20 00:26 | Emergency (ER) | payer SELFPAY ==
[2019-08-20 01:27] LABS: Albumin 3.9 g/dL (3.4-5.0); Basophils % 0.6 % (0-1.3); Bilirubin Direct 0.1 mg/dL (0-0.2); Bilirubin Total 0.4 mg/dL (0.2-1.0); Hematocrit 45.9 % (39.6-49.0); Lymphocytes % 19.6 % (15.3-44.8); MPV 8.7 fL (7.6-11.3); Potassium 3.2 mmol/L (3.5-5.1); Protein, Total 7.4 g/dL (6.4-8.2); RBC Red Blood Cell Count 4.89 M/uL (4.33-5.43)
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
[2019-08-20 02:08] VITALS: BP 136/97; O2SAT 100
--- NOTE | 2019-08-20 07:49 | RAD REPORT ---
EXAM DESCRIPTION: RAD - Knee Right 3 View - 08/20/2019 12:49 am CLINICAL HISTORY: Right knee pain status post injury FINDINGS: No fracture or dislocation is seen. Examination was done on the backboard. If patient continues have symptoms to suggest an occult fracture, ligamentous or meniscal injury MRI would be recommended
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
== END 2019-08-20 01:38 | disposition left against medical advice (07) ==
LOC: ER 00:26
DX: S00.90XA Unspecified superficial injury of unspecified part of head, initial encounter (principal); S80.01XA Contusion of right knee, initial encounter; V29.40XA Motorcycle driver injured in collision with unspecified motor vehicles in traffic accident, initial encounter; F41.9 Anxiety disorder, unspecified
CPT/HCPCS: 36415; 70450; 71250; 72125; 80048; 80076; 83690; 85025; 99284